=== PATIENT | female | born 1955 | race Caucasian/White ===

== ENCOUNTER 2016-04-18 23:00 | Inpatient (IN) | payer OTHER, MEDICARE ==
--- NOTE | ~2016-04-18 | HP ---
History And Physical [facility] [address] [place]. [address] NAME: DIXIE LILLY : 55 STATUS : ADM IN [facility]#: [id number] AGE: 60 ADM/REG DATE : 04/19/16 MR#: [id number] REPORT SERV DATE: 04/19/16 DICTATED BY: DEIDRE NUGENT DATE: 04/19/16 REPORT STATUS : Draft TRANSCRIBED BY: MODLuis Enrique DATE: 04/19/16 DATE OF ADMISSION: 04/19/2016 POINT OF ENTRY: [facility] Emergency Department. CHIEF COMPLAINT: Shortness of breath and chest pain. HISTORY OF PRESENT ILLNESS: Ms. Lilly is a 60-year-old female with history of severe COPD, on 3 L by nasal cannula, and is reportedly on hospice secondary to her advanced pulmonary disease as well as a history of chronic pain on multiple chronic narcotics and sedating medications, bipolar disease, hypertension, and anxiety, who presents to the emergency department today with multiple complaints including reports of worsening of her chronic shortness of breath as well as severe substernal chest pain with radiation to the back. The patient states she has not been feeling well for the past few days. She has noticed some slight increase in her cough and shortness of breath above her baseline. This evening she developed severe substernal chest pain which radiated to her back. This caused her some distress. She called her hospice agency who reportedly recommended that she come to the emergency department to be seen. Initial evaluation in the emergency department notable for a D-dimer that was less than 0.5. Labs otherwise unremarkable. EKG as well as cardiac enzymes were nonischemic. Chest x-ray was clear. ABG did show some chronic hypercarbic and hypoxic respiratory failure but appeared to be well compensated with a pH of 7.35. She was started on medications for COPD exacerbation and admitted to Hospitalist Service for further evaluation. COMPREHENSIVE REVIEW OF SYSTEMS: Otherwise negative unless listed in history of present illness. PREVIOUS MEDICAL HISTORY: 1. Severe COPD on 3 L nasal cannula. 2. Chronic pain on multiple sedating medications and chronic narcotics. 3. Anxiety. 4. Bipolar disease. 5. Sick sinus syndrome, status post pacemaker insertion. 6. Gastroesophageal reflux disease and peptic ulcer disease. 7. Obstructive sleep apnea, noncompliant with CPAP therapy. 8. Hypertension. 9. Hypothyroidism. 10.Peripheral arterial disease with renal artery stenosis. 11.Huj-brbuebf-oqzmdesgr diabetes mellitus type 2. SURGICAL HISTORY: 1. Pacemaker insertion. 2. Cholecystectomy. 3. Abdominal hysterectomy, bilateral salpingo-oophorectomy. History And Physical [place] [id number] [place]. [address] NAME: DIXIE LILLY : 55 STATUS : ADM IN [facility]#: [id number] AGE: 60 ADM/REG DATE : 04/19/16 MR#: [id number] REPORT SERV DATE: 04/19/16 DICTATED BY: DEIDRE NUGENT DATE: 04/19/16 REPORT STATUS : Draft TRANSCRIBED BY: NOÉ DATE: 04/19/16 4. Back surgery x4. ALLERGIES: NO KNOWN DRUG ALLERGIES. HOME MEDICATIONS: 1. Albuterol two puffs inhalation p.r.n. 2. Abilify 15 mg daily. 3. Aspirin 325 mg daily. 4. Klonopin 2 mg t.i.d. 5. Lasix 40 mg daily. 6. Gabapentin 100 mg t.i.d. 7. Hydrochlorothiazide 25 mg daily. 8. Labetalol 300 mg b.i.d. 9. Levothyroxine 100 mcg daily. 10.Losartan 100 mg daily. 11.Meloxicam 7.5 mg daily. 12.Metformin 500 mg b.i.d. 13.MS Contin 45 mg t.i.d. 14.Nicotine transdermal patch. 15.Percocet 10/325 one tab q.i.d. 16.Protonix 40 mg daily. 17.Potassium chloride 10 mEq daily. 18.Phenergan 25 mg q.4 hours p.r.n. 19.Senokot one tab b.i.d. 20.Zoloft 25 mg daily. 21.Spiriva one cap inhalation daily. 22.Trazodone 150 mg b.i.d. 23.Morphine liquid 20 mg q.i.d. p.r.n. SOCIAL HISTORY: She is a former smoker, quit just 5 days ago. Denies alcohol. Denies illicits. FAMILY MEDICAL HISTORY: Mother with diabetes and coronary artery disease. Father with diabetes and coronary artery disease. Siblings with coronary artery disease. LABS AND IMAGIN. White count is 9.8, hemoglobin is 14.8, hematocrit is 43.6, and platelet count is 175. INR is 0.9. 2. Sodium is 141, potassium 3.3, chloride 98, carbon dioxide 35, BUN 15, creatinine 0.96, glucose is 110, calcium is 8.5, magnesium is 2.0, protein 7.0, albumin 3.2, bilirubin 0.4, ALT is 26, AST 16, alkaline phosphatase is 142. 3. BNP is 9.4. D-dimer is 0.34. Troponin less than 0.02. 4. EKG per my review shows sinus tachycardia with no evidence of any acute ischemia or infarction. 5. Chest x-ray per my review shows poor inspiration, but otherwise no acute cardiopulmonary abnormalities. 6. ABG: PH is 7.35, pCO2 is 65, PO2 is 86, bicarb is 35, saturating 97% on 4 L by nasal History And Physical [address] [address] NAME: DIXIE LILLY : 55 STATUS : ADM IN [facility]#: [id number] AGE: 60 ADM/REG DATE : 04/19/16 MR#: [id number] REPORT SERV DATE: 04/19/16 DICTATED BY: DEIDRE NUGENT DATE: 04/19/16 REPORT STATUS : Draft TRANSCRIBED BY: NOÉ DATE: 04/19/16 cannula. PHYSICAL EXAMINATION: VITAL SIGNS: Temperature is 98.1 degrees Fahrenheit, pulse is 96, respirations 34, saturating 96% on 4 L of nasal cannula, and blood pressure /75. GENERAL: The patient is awake, alert, in no acute distress. Resting comfortably in bed. She is a very anxious appearing female. HEENT: Atraumatic and normocephalic. Moist mucous membranes. Pupils equal, round, and reactive to light and accommodation. Extraocular movements intact. No scleral icterus. NECK: No jugular venous distention. No carotid bruits. CARDIAC: Regular rate and rhythm. No murmurs, rubs, or gallops. Normal S1, S2. She is tender to palpation over the sternal area. LUNGS: On oxygen but in no respiratory distress. She is currently saturating well on 3 L of nasal cannula. Does have prolonged respiratory phase as well as diffuse inspiratory wheezes in all lung anders. ABDOMEN: Soft, nontender, nondistended. Good bowel sounds. No rebound, guarding, or rigidity. EXTREMITIES: Warm, perfused. No cyanosis, clubbing, or edema. SKIN: Warm and dry. PSYCH: Very anxious. NEURO: Alert and oriented x3. Cranial nerves 2 through 12 grossly intact. Speech is normal. Gait not assessed. ASSESSMENT: Ms. Lilly is a 60-year-old female who presents with shortness of breath, cough, and chest pain with radiation to the back. Concern for acute chronic obstructive pulmonary disease exacerbation as well as likely noncardiac chest pain. PROBLEM LIST: 1. Acute COPD exacerbation. 2. Chronic hypercarbic and hypoxic respiratory failure. 3. Chest pain, likely noncardiac. 4. Chronic pain on chronic narcotics. 5. Hypokalemia. PLAN: 1. Acute COPD exacerbation. We will treat with IV antibiotics, IV steroids, as well as frequent bronchodilators. 2. Chronic hypercarbic and hypoxic respiratory failure. She appears to be well compensated this time. She is currently on her home 3 L of nasal cannula. Her pH is slightly low and her pCO2 is slightly elevated. Therefore, I put her on intermittent BiPAP primarily at night. 3. Chest pain. This appears to be noncardiac in nature given my ability to reproduce the pain on palpation of the anterior chest wall. However, given her reports of radiation to the back as well as tachycardia when she first arrived, I will send her off for a stat CTA of the chest and rule out for PE. 4. Chronic pain on chronic narcotics. We will continue the patient's home chronic narcotics. We will limit the amount of IV p.r.n. narcotics that she receives. History And Physical [address] [place]. [address] NAME: DIXIE LILLY : 55 STATUS : ADM IN [facility]#: [id number] AGE: 60 ADM/REG DATE : 04/19/16 MR#: [id number] REPORT SERV DATE: 04/19/16 DICTATED BY: DEIRDE NUGENT DATE: 04/19/16 REPORT STATUS : Draft TRANSCRIBED BY: NOÉ DATE: 04/19/16 5. DVT prophylaxis. Lovenox subcutaneous. CODE STATUS: The patient wishes to be full code. Of note, she again is wishing to revoke hospice while she is here but has plans to go back to [facility] upon discharge. JCB/MODL Deidre Nugent MD / [id number] CC: MD Osmar Yepez M.D.
--- NOTE | ~2016-04-18 | IDS ---
Interim Discharge Summary [facility] [address] [place]. [address] NAME: DIXIE LILLY : 55 STATUS : ADM IN PAT#: [id number] AGE: 60 ADM/REG DATE : 04/19/16 MR#: [id number] REPORT SERV DATE: 04/25/16 DICTATED BY: MAYE PRAKASH DATE: 04/24/16 REPORT STATUS : Draft TRANSCRIBED BY: NOÉ DATE: 04/24/16 ADMISSION DATE: 04/19/2016 DISCHARGE DATE: CURRENT ADMISSION DIAGNOSES: 1. Chronic hypercapnic respiratory failure. 2. Acute chronic obstructive pulmonary disease exacerbation. 3. Obstructive sleep apnea. 4. Small-bowel obstruction. 5. Chronic back pain. 6. Chronic pain syndrome. 7. Chronic opioid dependence. 8. Obstructive sleep apnea on CPAP. 9. Anxiety disorder. 10.DNR status. 11.Hypothyroidism. 12.Noncardiac chest pain. CURRENT CONDITION: Critical. CONSULTANTS INVOLVED IN THIS PATIENT'S CARE: 1. Pulmonology. 2. Psychiatry. 3. General Surgery. 4. Palliative Care. BRIEF HISTORY OF PRESENT ILLNESS: This is a 60-year-old female with history of COPD on 3 L of O2 at baseline who reportedly is in hospice secondary to advanced pulmonary disease who presented to the hospital with concerns of shortness of breath and chest pain. In the ER, the patient was found to have a chest x-ray. In the ER, chest x-ray was otherwise normal. ABG shows a pH of 7.35, pCO2 of 65, PO2 of 86. Physical exam was noted for significant diffuse expiratory wheeze. An assessment of acute COPD exacerbation was made with chronic hypercapnic respiratory failure. The patient was admitted to the Hospitalist Service. The patient had a CTA to rule out pulmonary embolism during this admission. HOSPITAL COURSE: 1. Acute COPD exacerbation. The patient was started on IV methylprednisone with DuoNeb. The patient's shortness of breath initially improved, however, she continues to wheeze persistently despite IV antibiotics treatment, steroid treatments, and bronchodilators. Given her known history of advanced lung disease and chronic hypercapnic respiratory failure, Pulmonology was consulted for further recommendation. Pulmonology recommended to transition patient from IV prednisone to p.o. prednisone and also discontinue p.o. antibiotics as the patient has completed 7 days of levofloxacin. They recommend to continue DuoNeb and also added Pulmicort and Symbicort to the patient's treatment. 2. Chronic hypercapnic respiratory failure. The patient has a BiPAP machine at the bedside. The patient sleeps with BiPAP at night. The patient did not meet criteria Interim Discharge Summary [place] [id number] [place]. [address] NAME: DIXIE LILLY : 55 STATUS : ADM IN [facility]#: [id number] AGE: 60 ADM/REG DATE : 04/19/16 MR#: [id number] REPORT SERV DATE: 04/25/16 DICTATED BY: MAYE PRAKASH DATE: 04/24/16 REPORT STATUS : Draft TRANSCRIBED BY: NOÉ DATE: 04/24/16 for acute hypercapnic respiratory failure as the patient's pH has remained persistently normal. 3. Small bowel obstruction. The patient developed nausea and vomiting on 04/24/2016. X- ray was initially negative. CT scan of the abdomen was done that was consistent with small-bowel obstruction. NG tube was placed. General Surgery was consulted. Per General Surgery, the patient is not a surgical candidate. We will continue conservative management. 4. Code status. The patient came in to the hospital with history of hospice care. However, code status was initially reversed in the ER for patient to be admitted. Palliative Care was consulted to address code status as well as to assist with chronic pain management. The patient was deemed to be DNR in the hospital. Adjustments were made to patient's narcotics medication per Palliative Care recommendation. 5. Bipolar disorder. The patient takes a lot of bipolar medications. However, given that Psychiatry was consulted to assist in management of antipsychotic medication and determine competency, patient is competent for Psychiatry and the patient was advised to continue current antipsychotic medication. 6. Known cardiac chest pain. The patient continued to report chronic chest pain. Stress test was done that was essentially negative. Echo was done that shows preserved EF. No evidence. The patient's chronic chest pain is definitely not cardiac and may have some psychiatric component to it. ONGOING ACTIVE ISSUES: 1. Small bowel obstruction. 2. Chronic opioid use. 3. Acute chronic obstructive pulmonary disease exacerbation. CODE STATUS: DNR. AMYO/MODL Maye Prakash MD / [id number] CC: Maye Prakash MD
--- NOTE | ~2016-04-18 | PUL ---
[address] [address] NAME: DIXIE LILLY : 55 STATUS : DIS IN PAT#: [id number] AGE: 60 ADM/REG DATE : 04/19/16 MR#: [id number] REPORT SERV DATE: 05/02/16 DICTATED BY: RANDA GREEN DATE: 05/01/16 REPORT STATUS : Draft TRANSCRIBED BY: MODL DATE: 05/01/16 PULMONARY FUNCTION TEST TEST: Overnight pulse oximetry done on 32% FiO2. Total recording time 5 hours 58 minutes, mean pulse is 90, mean oxygen saturation 95.4%. Time with an oxygen saturation less than 88% is 0. INTERPRETATION: On this patient, who is on 32% FiO2, no significant desaturations were noted or hypoxia. It seems that this patient is adequately titrated. HFQ/NOÉ Randa Green MD / [id number] CC: Sam Ibanez MD
--- NOTE | ~2016-04-18 | DS ---
Discharge Summary [facility] [address] [place]. [address] NAME: DIXIE LILLY : 55 STATUS : DIS IN PAT#: [id number] AGE: 60 ADM/REG DATE : 04/19/16 MR#: [id number] REPORT SERV DATE: 04/27/16 DICTATED BY: GREGORY AMANDA DATE: 04/26/16 REPORT STATUS : Draft TRANSCRIBED BY: MODL DATE: 04/26/16 ADMISSION DATE: 04/19/2016 DISCHARGE DATE: 04/26/2016 HISTORY OF PRESENT ILLNESS: The patient a 60-year-old female with a history of severe COPD and ROCHELLE, on BiPAP, who presented to the emergency room with a complaint of shortness of breath and chest pain. For further details, please refer to H and P dictated by Dr. Barajas on 04/19/2016. HOSPITAL COURSE: Please refer to interim discharge summary dictated by Dr. Winchester on 04/25/2016. I assumed care of this patient 04/25/2016. This dictation is an addition to interim discharge summary. The patient was evaluated by Palliative Care given Surgery's evaluation of no acute intervention in the setting of small bowel obstruction secondary to severe COPD. Given this, the patient's code status was changed to DNI/DNR. The patient has been followed by Palliative Care. Per discussions with Palliative Care, the patient would like to be placed back on hospice care. Given completion of workup and no plan for any active intervention, the patient will be discharged home on hospice care. Plan has been discussed with the patient, who voices understanding. All other information in the interim discharge summary remains the same. Greater than 30 minutes was spent coordinating care, dictation of note, discussion of the patient with Palliative Care and Case Management. MERT/NOÉ Gregory Amanda MD / [id number] CC: Gregory Amanda MD
--- NOTE | ~2016-04-18 | CN ---
Consultation Report [facility] [address] [place]. [address] NAME: DIXIE LILLY : 55 STATUS : ADM IN PAT#: [id number] AGE: 60 ADM/REG DATE : 04/19/16 MR#: [id number] REPORT SERV DATE: 04/24/16 DICTATED BY: EFREM HOWE DATE: 04/24/16 REPORT STATUS : Draft TRANSCRIBED BY: MODL DATE: 04/24/16 PSYCHIATRIC CONSULTATION DATE OF CONSULTATION: 04/24/2016 I reviewed the patient's current and old medical records. I discussed the patient's status with Dr. Winchester, her hospitalist. HISTORY OF PRESENT ILLNESS: She was admitted with shortness of breath and chest pain. PAST PSYCHIATRIC HISTORY: Over the past two years, she has had a number of admissions to this hospital with noncardiac chest pain and exacerbations of COPD. Prior to this admission, she apparently was under hospice care, but since her admission, she was given contradictory instructions concerning DNR and code status in general. HOME MEDICATION LIST: Included Abilify 15 mg daily, Klonopin 2 mg t.i.d., Neurontin 100 mg t.i.d., MS Contin 45 mg t.i.d., morphine liquid 20 mg q.i.d. p.r.n., Zoloft 25 mg daily, trazodone 150 mg b.i.d. and a nicotine patch. She was able to tell me that she used to get psychiatric care from Dr. Kennedy at [facility] in [place]. She was too drowsy to give any further details concerning her history of psychiatric illness and treatment. SOCIAL HISTORY: She apparently lives in [place], [place]. She reportedly has two children. I called the telephone number which was on the face sheet for her daughter Yola, but I got a confusing reply. The respondent said she had a different name but that indeed her mother was in the hospital but it was at [facility]. MENTAL STATUS: The patient was drowsy, and she frequently lapsed into sleep as I was trying to get her past history. Her voice was slow and slurred. She had difficulty completing sentences. DIAGNOSES: 1. Toxicity from polypharmacy. 2. Probable bipolar disorder, NOS. RECOMMENDATION: At this time, the patient does not have capacity to give a history or to make treatment decisions because of over-sedation. She probably will regain capacity if we are able to reduce her sedating medications. At the hospitalist's discretion, we might consider stopping trazodone and reducing the Klonopin. However, if she is going to be followed by hospice, this medication regimen might be acceptable to hospice standards and goals. Consultation Report [place] [id number] [place]. [address] NAME: DIXIE LILLY : 55 STATUS : ADM IN PAT#: [id number] AGE: 60 ADM/REG DATE : 04/19/16 MR#: [id number] REPORT SERV DATE: 04/24/16 DICTATED BY: EFREM HOWE DATE: 04/24/16 REPORT STATUS : Draft TRANSCRIBED BY: NOÉ DATE: 04/24/16 MICHEL/NOÉ Efrem Howe M.D. / [id number] CC: Maye Winchester MD
--- NOTE | ~2016-04-18 | CN ---
Consultation Report [facility] [address] [place]. [address] NAME: NOVA LILLY : 55 STATUS : ADM IN [facility]#: [id number] AGE: 60 ADM/REG DATE : 04/19/16 MR#: [id number] REPORT SERV DATE: 04/24/16 DICTATED BY: MAISHA BRIGGS DATE: 04/23/16 REPORT STATUS : Draft TRANSCRIBED BY: MODLuis Enrique DATE: 04/23/16 DATE OF CONSULTATION: Dear Dr. Winchester: Thank you for requesting my opinion regarding evaluation and management of Ms Nova Lilly's severe COPD and chronic hypoxic respiratory failure. Ms Lilly is a pleasant, but unfortunate 60-year-old female with a significant past medical history of severe COPD and active tobacco abuse requiring 3 L nasal cannula at home, who was actually on hospice prior to this admission who presented with worsening shortness of breath and severe substernal chest pain with radiation to her back. Her cardiac workup demonstrated a normal echocardiogram, no ischemia, and normal LV function and negative cardiac enzymes. The patient's shortness of breath was treated with Levaquin, Brovana, Pulmicort, DuoNebs, nicotine patch, and Solu-Medrol. The patient also has a pending ABG and is now complaining of new onset abdominal pain and discomfort. She has a history of chronic pain issues, requiring chronic narcotics. REVIEW OF SYSTEMS: A detailed 14-point review of systems was completed. Pertinent positives and negatives are listed above. PAST MEDICAL HISTORY: 1. COPD, on 3 L nasal cannula. 2. Chronic pain on multiple sedating medications and chronic narcotics. 3. Severe anxiety. 4. Bipolar disease. 5. Sick sinus syndrome, status post pacemaker insertion. 6. GERD and peptic ulcer disease. 7. Obstructive sleep apnea, noncompliant with CPAP therapy. 8. Hypertension. 9. Hypothyroidism. 10.Peripheral arterial disease with renal artery stenosis. 11.Ruc-uwbmqob-yhwmlxrpf diabetes type 2. PAST SURGICAL HISTORY: 1. Pacemaker insertion. 2. Cholecystectomy. 3. Abdominal hysterectomy and bilateral salpingo-oophorectomy. 4. Back surgery x4. ALLERGIES: NO KNOWN DRUG ALLERGIES. Consultation Report [place] [id number] [facility] [place] [place]. [address] NAME: NOVA LILLY : 55 STATUS : ADM IN PAT#: [id number] AGE: 60 ADM/REG DATE : 04/19/16 MR#: [id number] REPORT SERV DATE: 04/24/16 DICTATED BY: MAISHA BRIGGS DATE: 04/23/16 REPORT STATUS : Draft TRANSCRIBED BY: NOÉ DATE: 04/23/16 HOME MEDICATIONS: Reviewed and located in the paper chart. SOCIAL HISTORY: The patient continued to smoke up until five days ago. She denies any significant alcohol or illicit drug abuse. FAMILY HISTORY: Coronary artery disease. PHYSICAL EXAMINATION: VITAL SIGNS: Afebrile. T-current 97.9, pulse of 74, respiratory rate of 18, 3 L nasal cannula 96%, blood pressure 136/70. GENERAL: In no acute distress. Able to communicate in full paragraphs at a time. HEENT: Normocephalic, atraumatic. Pupils are equal, round, and reactive to light and accommodation. Posterior oropharynx is clear. NECK: No JVD. No LAD. Trachea midline. CARDIOVASCULAR: Regular rate and rhythm. S1, S2 present. LUNGS: Coarse bilateral breath sounds, end-expiratory wheezes noted bilaterally. Abdomen slightly tender, but not distended and no rebound or guarding noted. EXTREMITIES: No clubbing, cyanosis, or edema. SKIN: No new rashes, lesions, or ulcers. PSYCHIATRIC: Alert and oriented x3. Appropriate mood and affect. Anxious. NEUROLOGIC: 5/5 strength in upper and lower extremities. Cranial nerves II through XII intact. Gait not tested. DTRs not performed. LABORATORY: White count of 15, hemoglobin of 15, platelet count of 184. Negative procalcitonin on 04/21/2016. Creatinine of 0.91, improved. IMAGIN. CTA of the chest on 04/19/2016 demonstrates no evidence of pulmonary embolism. There is an aberrant right subclavian artery. 2. Multifocal atelectatic changes in the lower lobes of both lungs. There is a wedge- shaped band of opacity in the superior segment of the right lower lobe which may represent atelectasis or an infectious inflammatory infiltrate. 3. Stable low dense right adrenal nodule, measuring 28 x 30 mm, was compatible with an adenoma. Low-density nodule with thickening in the lateral limb of the left adrenal gland, it is likely some underlying adenomatous change. 4. Status post pacemaker placement and cholecystectomy. This CT scan was personally reviewed by me, and I agree with the above interpretation. Findings on the echocardiogram were reviewed. KUB has been ordered. ASSESSMENT AND PLAN: Ms Nova Lilly is an unfortunate 60-year-old female with a significant past medical history of severe chronic obstructive pulmonary disease requiring 3 Consultation Report [address] [address] NAME: NOVA LILLY : 55 STATUS : ADM IN PAT#: [id number] AGE: 60 ADM/REG DATE : 04/19/16 MR#: [id number] REPORT SERV DATE: 04/24/16 DICTATED BY: MAISHA BRIGGS DATE: 04/23/16 REPORT STATUS : Draft TRANSCRIBED BY: NOÉ DATE: 04/23/16 L nasal cannula and continued tobacco abuse and chronic pain issues who presents to [facility] with substernal chest pain. It is likely noncardiac in origin. The patient's shortness of breath is likely multifactorial due to the following. 1. Acute exacerbation of chronic obstructive pulmonary disease with baseline home O2 requirements of 3 L nasal cannula. 2. Obstructive sleep apnea with intermittent compliance with CPAP therapy. 3. Chronic pain with multiple sedating agents and chronic narcotics. 4. Anxiety. 5. Bipolar disease. 6. New onset abdominal discomfort. I have reviewed the current treatment plan which includes Brovana, Pulmicort, DuoNebs, nicotine patch, and Levaquin. I agree with the current plan and will make only change Solu- Medrol to prednisone therapy. Followup. Defer abdominal pain workup to the hospitalist. Thank you for allowing me to participate in Ms Lilly's care. Sincerely, LESLIE/NOÉ Maisha Briggs M.D. / [id number] CC: Maye Winchester MD
[~2016-04-18 23:00] MED LIST: ABILIFY10; ABILIFY10 PO; ABILIFY15 PO; ABILIFY30 MG PO; ACCUNE1 INH; ALER-CAP25 MG PO; ANITBIOTIC; ASA5GR PO; ASABAYER PO; ATROVENTUD INH; CARASPUDL PO; COZ25 PO; CRESTOR10 PO; EFFEXXR37 PO; FLEX PO; GLUCPH PO; HYDROCHLOROT25 MG PO; IBU800 PO; INHALER; IVVIBRA; KLONO1 PO; KLONO2 PO; KLONO5 PO; KLOR-CON 1010 MEQ PO; KLOR-CON M2020 MEQ PO; L40 PO; LAMICTAL10 PO; LAMICTAL150 MG PO; LEVAQUIN750 MG PO; LEVOTHYROXIN100 MCG PO; LEVOTHYROXIN75 MCG PO; LEXAPRO20 PO; LINZESS 145 M145 MCG PO; LORTAB10 PO; MIRALAXPKT PO; MSCONTIN PO; NEUR300 PO; NEUR400 PO; NEUR600 PO; NICODERM C21 MG/241 TOP; P1; P20 PO; PERCOCET1 TA4 PO; PR25 PO; PRAVAC PO; PRILO PO; PROAIR HFA INH; QVAR80 MCG IN; SEROQUEL300 MG PO; SPIRIVA INH; SYN075 PO; SYN1 PO; T PO; TOPAMAX100 PO; TRAZODONE150 MG PO; TRAZODONE300 MG PO; TYLENOL ARTH650 MG PO; ULTRAM50 PO; VIB100 PO; XOPEN0.5ML INH; ZANAFLEX2 MG PO; ZANTAC150 MG PO; ZOFRAN8 PO; [UNRECOGNIZED DRUG - REMARK]
[2016-04-18 23:28] LABS: CARBOXYHEMOGLOBIN 6.6 % (0-3); DEVICE NC; HEMOBLOGIN CONTENT 14.7 G/DL (12-16); INSTRUMENT SERIAL # 8087; METHEMOGLOBIN 0.1 % (0-3); O2 CONTENT 18.7 VOL% (18-24); PCO2 (CO2 TENSION) 65 MMHG (35-45); PO2 (O2 TENSION) 86 MMHG (79-93); SAMPLE Arterial; pH 7.35 (7.37-7.43)
[2016-04-18 23:41] LABS: BASOPHILS 0.3 %; BASOPHILS ABSOLUTE 0.03 10/3/uL (0.0-0.16); EOSINOPHILS 1.6 %; EOSINOPHILS ABSOLUTE 0.16 10/3/uL (0.0-0.53); ER CBC TAT 0 Hrs 06 MinsNP; HEMATOCRIT 43.6 % (36.0-48.0); HEMOGLOBIN 14.8 g/dL (12.0-16.0); IMMATURE GRANULOCYTES 0.3 %; IMMATURE GRANULOCYTES ABSOLUTE 0.03 10/3/uL (0.0-0.11); LYMPHOCYTES 28.2 %; LYMPHOCYTES ABSOLUTE 2.76 10/3/uL (0.67-4.30); MANUAL DIFF NO %; MEAN CORPUS HGB CONC 33.9 g/dL (32.0-36.0); MEAN CORPUSCULAR HEMOGLOB 29.6 pg (26.0-34.0); MEAN CORPUSCULAR VOLUME 87.2 fL (80-100); MEAN PLATELET VOLUME 10.8 fL (9.2-13.0); MONOCYTES 6.8 %; MONOCYTES ABSOLUTE 0.67 10/3/uL (0.21-1.20); NEUTROPHILS 62.8 %; NEUTROPHILS ABSOLUTE 6.14 10/3/uL (2.02-8.40); PLATELET COUNT 175 10/3/uL (150-400); RBC DISTRIBUTION WIDTH 13.1 % (12.0-16.0); WHITE BLOOD CELLS 9.8 10/3/uL (4.5-10.5)
[2016-04-18 23:47] LABS: INTERNATIONAL NORMAL RATI 0.9 UNITS (-); PARTIAL THROMBO TIME 30.9 SEC (22.5-37.2); PROTIME (NOT ORD) 12.3 SEC (12.0-14.5)
[2016-04-18 23:49] LABS: D-DIMER QUANTITATIVE 0.34 ug/mLFEU (< 0.50)
[2016-04-18 23:57] LABS: ALBUMIN 3.2 G/DL (3.5-5.0); CALCIUM, SERUM 8.5 MG/DL (8.5-10.4); CHEST PAIN PROFILE TAT 0 Hrs 22 Mins; CHLORIDE, SERUM 98 MMOL/L (96-112); CO2 (CARBON DIOXIDE) 35 MMOL/L (24-34); CREATININE 0.96 MG/DL (0.55-1.02); DIRECT BILIRUBIN 0.1 MG/DL (0.0-0.4); GFR AFRICAN AMERICAN 75 ML/MIN (>=60); GFR NON AFRICAN AMERICAN 64 ML/MIN (>=60); INDIRECT BILIRUBIN(NOT ORDER) 0.3 MG/DL (0.1-0.9); POTASSIUM, SERUM 3.3 MMOL/L (3.5-5.3); SGOT(AST) 16 U/L (5-40); SGPT(ALT) 26 U/L (5-65); TOTAL BILIRUBIN 0.4 MG/DL (0-1.2); TROPONIN I <0.02 NG/ML (<0.05)
[2016-04-18 23:58] LABS: ALKALINE PHOSPHATASE 142 U/L (45-117); BUN (BLOOD UREA NITROGEN) 15 MG/DL (6-23); GLUCOSE, SERUM 110 MG/DL (60-99); SODIUM, SERUM 141 MMOL/L (135-148)
[2016-04-19] MEDS ORDERED: TRAZODONE150 MG PO (03:03)
[2016-04-19] MEDS ORDERED: ZOLOFT25 MG PO (03:03)
[2016-04-19] MEDS ORDERED: L40 PO (03:03)
[2016-04-19] MEDS ORDERED: COZAAR100 MG PO (03:03)
[2016-04-19] MEDS ORDERED: GLUCPH PO (03:03)
[2016-04-19] MEDS ORDERED: ASA5GR PO (03:03)
[2016-04-19] MEDS ORDERED: NEUR800 PO (03:04)
[2016-04-19] MEDS ORDERED: SYN1 PO (03:04)
[2016-04-19] MEDS ORDERED: ABILIFY15 PO (03:04)
[2016-04-19] MEDS ORDERED: TRANDAT300 PO (03:04)
[2016-04-19] MEDS ORDERED: PROTONIX PO (03:04)
[2016-04-19] MEDS ORDERED: KDUR10 PO (03:05)
[2016-04-19] MEDS ORDERED: HABIT21 TOP (03:05)
[2016-04-19] MEDS ORDERED: SENTAB PO (03:05)
[2016-04-19] MEDS ORDERED: KLONO2 PO (03:06)
[2016-04-19] MEDS ORDERED: MSCONT15 PO (03:07)
[2016-04-19] MEDS ORDERED: SPIRIVA INH (03:08)
[2016-04-19] MEDS ORDERED: PROAIR HFA INH (03:08)
[2016-04-19] MEDS ORDERED: PERCOCET 10/3251 TAB PO (03:08)
[2016-04-19] MEDS ORDERED: PR25 PO (03:08)
[2016-04-19] MEDS ORDERED: MOBIC7.5 PO (03:09)
[2016-04-19] MEDS ORDERED: MORPHINE 20 MG/1 ML PO (03:10)
[2016-04-19] MEDS ORDERED: HYDROCHLOROT25 MG PO (03:12)
[2016-04-19 07:06] LABS: TROPONIN I <0.02 NG/ML (<0.05)
[2016-04-19 07:11] LABS: CK-MB < 0.5 NG/ML; CPK 67 U/L (0-200)
[2016-04-19 16:17] LABS: CPK 77 U/L (0-200); TROPONIN I <0.02 NG/ML (<0.05)
[2016-04-19 16:32] LABS: CK-MB 0.7 NG/ML
[2016-04-20 07:57] LABS: BASOPHILS 0 %; EOSINOPHILS 0 %; HEMATOCRIT 43.2 % (36.0-48.0); HEMOGLOBIN 14.7 g/dL (12.0-16.0); IMMATURE GRANULOCYTES 0.4 %; IMMATURE GRANULOCYTES ABSOLUTE 0.07 10/3/uL (0.0-0.11); LYMPHOCYTES 5.1 %; LYMPHOCYTES ABSOLUTE 0.98 10/3/uL (0.67-4.30); MANUAL DIFF NO %; MEAN CORPUSCULAR HEMOGLOB 29.6 pg (26.0-34.0); MEAN CORPUSCULAR VOLUME 87.1 fL (80-100); MEAN PLATELET VOLUME 11.1 fL (9.2-13.0); MONOCYTES 2.4 %; MONOCYTES ABSOLUTE 0.45 10/3/uL (0.21-1.20); NEUTROPHILS 92.1 %; NEUTROPHILS ABSOLUTE 17.59 10/3/uL (2.02-8.40); PLATELET COUNT 192 10/3/uL (150-400); RBC DISTRIBUTION WIDTH 13.2 % (12.0-16.0); RED CELL COUNT 4.96 10/6/uL (4.0-5.6); WHITE BLOOD CELLS 19.1 10/3/uL (4.5-10.5)
[2016-04-20 08:40] LABS: ALBUMIN 3.3 G/DL (3.5-5.0); BUN (BLOOD UREA NITROGEN) 18 MG/DL (6-23); CALCIUM, SERUM 8.8 MG/DL (8.5-10.4); CHLORIDE, SERUM 91 MMOL/L (96-112); CO2 (CARBON DIOXIDE) 34 MMOL/L (24-34); CREATININE 1.04 MG/DL (0.55-1.02); GFR AFRICAN AMERICAN 68 ML/MIN (>=60); GFR NON AFRICAN AMERICAN 58 ML/MIN (>=60); GLUCOSE, SERUM 186 MG/DL (60-99); PHOSPHORUS, SERUM 3.5 MG/DL (2.5-4.5); POTASSIUM, SERUM 3.9 MMOL/L (3.5-5.3); SODIUM, SERUM 133 MMOL/L (135-148)
[2016-04-21 05:34] LABS: BASOPHILS 0.1 %; BASOPHILS ABSOLUTE 0.01 10/3/uL (0.0-0.16); EOSINOPHILS 0 %; HEMATOCRIT 42.4 % (36.0-48.0); HEMOGLOBIN 14.3 g/dL (12.0-16.0); IMMATURE GRANULOCYTES 0.6 %; IMMATURE GRANULOCYTES ABSOLUTE 0.09 10/3/uL (0.0-0.11); LYMPHOCYTES 9.4 %; LYMPHOCYTES ABSOLUTE 1.47 10/3/uL (0.67-4.30); MEAN CORPUS HGB CONC 33.7 g/dL (32.0-36.0); MEAN CORPUSCULAR HEMOGLOB 29.5 pg (26.0-34.0); MEAN CORPUSCULAR VOLUME 87.6 fL (80-100); MEAN PLATELET VOLUME 10.6 fL (9.2-13.0); MONOCYTES 5.2 %; MONOCYTES ABSOLUTE 0.81 10/3/uL (0.21-1.20); NEUTROPHILS 84.7 %; NEUTROPHILS ABSOLUTE 13.21 10/3/uL (2.02-8.40); PLATELET COUNT 184 10/3/uL (150-400); RBC DISTRIBUTION WIDTH 13.4 % (12.0-16.0); RED CELL COUNT 4.84 10/6/uL (4.0-5.6); WHITE BLOOD CELLS 15.6 10/3/uL (4.5-10.5)
[2016-04-21 05:36] LABS: MANUAL DIFF NO %
[2016-04-21 05:46] LABS: CALCIUM, SERUM 8.4 MG/DL (8.5-10.4); CHLORIDE, SERUM 88 MMOL/L (96-112); CO2 (CARBON DIOXIDE) 34 MMOL/L (24-34); CREATININE 1.09 MG/DL (0.55-1.02); GFR AFRICAN AMERICAN 64 ML/MIN (>=60); GFR NON AFRICAN AMERICAN 55 ML/MIN (>=60); PHOSPHORUS, SERUM 4.1 MG/DL (2.5-4.5); POTASSIUM, SERUM 4.1 MMOL/L (3.5-5.3); SODIUM, SERUM 133 MMOL/L (135-148)
[2016-04-21 05:49] LABS: BUN (BLOOD UREA NITROGEN) 27 MG/DL (6-23); GLUCOSE, SERUM 147 MG/DL (60-99)
[2016-04-21 06:30] LABS: PROCALCITONIN <0.05 ng/mL (<0.5)
[2016-04-22 07:12] LABS: BASOPHILS 0.1 %; BASOPHILS ABSOLUTE 0.01 10/3/uL (0.0-0.16); EOSINOPHILS 0 %; HEMOGLOBIN 14.9 g/dL (12.0-16.0); IMMATURE GRANULOCYTES 0.7 %; IMMATURE GRANULOCYTES ABSOLUTE 0.09 10/3/uL (0.0-0.11); LYMPHOCYTES 8.9 %; LYMPHOCYTES ABSOLUTE 1.14 10/3/uL (0.67-4.30); MEAN CORPUS HGB CONC 33.9 g/dL (32.0-36.0); MEAN CORPUSCULAR HEMOGLOB 29.2 pg (26.0-34.0); MEAN CORPUSCULAR VOLUME 86.3 fL (80-100); MEAN PLATELET VOLUME 10.8 fL (9.2-13.0); MONOCYTES 3.4 %; MONOCYTES ABSOLUTE 0.44 10/3/uL (0.21-1.20); NEUTROPHILS 86.9 %; NEUTROPHILS ABSOLUTE 11.09 10/3/uL (2.02-8.40); PLATELET COUNT 176 10/3/uL (150-400); RBC DISTRIBUTION WIDTH 12.9 % (12.0-16.0); WHITE BLOOD CELLS 12.8 10/3/uL (4.5-10.5)
[2016-04-22 07:18] LABS: MANUAL DIFF NO %
[2016-04-22 07:22] LABS: ALBUMIN 2.9 G/DL (3.5-5.0); BUN (BLOOD UREA NITROGEN) 24 MG/DL (6-23); CALCIUM, SERUM 8.9 MG/DL (8.5-10.4); CHLORIDE, SERUM 90 MMOL/L (96-112); CO2 (CARBON DIOXIDE) 36 MMOL/L (24-34); CREATININE 0.91 MG/DL (0.55-1.02); GFR AFRICAN AMERICAN 79 ML/MIN (>=60); GFR NON AFRICAN AMERICAN 69 ML/MIN (>=60); GLUCOSE, SERUM 163 MG/DL (60-99); PHOSPHORUS, SERUM 3.2 MG/DL (2.5-4.5); POTASSIUM, SERUM 3.9 MMOL/L (3.5-5.3); SODIUM, SERUM 136 MMOL/L (135-148)
[2016-04-23 17:18] LABS: BASOPHILS 0.1 %; BASOPHILS ABSOLUTE 0.01 10/3/uL (0.0-0.16); EOSINOPHILS 0 %; HEMATOCRIT 45.8 % (36.0-48.0); HEMOGLOBIN 15.7 g/dL (12.0-16.0); IMMATURE GRANULOCYTES 0.9 %; IMMATURE GRANULOCYTES ABSOLUTE 0.13 10/3/uL (0.0-0.11); LYMPHOCYTES 5.8 %; LYMPHOCYTES ABSOLUTE 0.88 10/3/uL (0.67-4.30); MEAN CORPUS HGB CONC 34.3 g/dL (32.0-36.0); MEAN CORPUSCULAR HEMOGLOB 29.4 pg (26.0-34.0); MEAN CORPUSCULAR VOLUME 85.8 fL (80-100); MONOCYTES 5.6 %; MONOCYTES ABSOLUTE 0.85 10/3/uL (0.21-1.20); NEUTROPHILS 87.6 %; NEUTROPHILS ABSOLUTE 13.24 10/3/uL (2.02-8.40); PLATELET COUNT 184 10/3/uL (150-400); RED CELL COUNT 5.34 10/6/uL (4.0-5.6); WHITE BLOOD CELLS 15.1 10/3/uL (4.5-10.5)
[2016-04-23 17:23] LABS: MANUAL DIFF NO %
[2016-04-24 06:19] LABS: BASOPHILS 0.2 %; BASOPHILS ABSOLUTE 0.03 10/3/uL (0.0-0.16); EOSINOPHILS 0.4 %; EOSINOPHILS ABSOLUTE 0.06 10/3/uL (0.0-0.53); HEMATOCRIT 49.5 % (36.0-48.0); HEMOGLOBIN 16.8 g/dL (12.0-16.0); IMMATURE GRANULOCYTES ABSOLUTE 0.17 10/3/uL (0.0-0.11); LYMPHOCYTES 9.8 %; LYMPHOCYTES ABSOLUTE 1.65 10/3/uL (0.67-4.30); MEAN CORPUS HGB CONC 33.9 g/dL (32.0-36.0); MEAN CORPUSCULAR HEMOGLOB 29.4 pg (26.0-34.0); MEAN CORPUSCULAR VOLUME 86.7 fL (80-100); MEAN PLATELET VOLUME 11.2 fL (9.2-13.0); MONOCYTES 7.1 %; NEUTROPHILS 81.5 %; NEUTROPHILS ABSOLUTE 13.78 10/3/uL (2.02-8.40); PLATELET COUNT 199 10/3/uL (150-400); RBC DISTRIBUTION WIDTH 13.5 % (12.0-16.0); RED CELL COUNT 5.71 10/6/uL (4.0-5.6); WHITE BLOOD CELLS 16.9 10/3/uL (4.5-10.5)
[2016-04-24 06:23] LABS: CHLORIDE, SERUM 81 MMOL/L (96-112); CO2 (CARBON DIOXIDE) 38 MMOL/L (24-34); CREATININE 1.35 MG/DL (0.55-1.02); GFR AFRICAN AMERICAN 49 ML/MIN (>=60); GFR NON AFRICAN AMERICAN 43 ML/MIN (>=60); GLUCOSE, SERUM 163 MG/DL (60-99)
[2016-04-24 06:29] LABS: MANUAL DIFF NO %
[2016-04-24 06:33] LABS: BUN (BLOOD UREA NITROGEN) 41 MG/DL (6-23); CALCIUM, SERUM 9.9 MG/DL (8.5-10.4); PHOSPHORUS, SERUM 4.7 MG/DL (2.5-4.5); SODIUM, SERUM 129 MMOL/L (135-148)
[2016-04-24 13:32] LABS: FREE T4 1.01 NG/DL (0.76-1.46)
[2016-04-24 17:10] LABS: ALLENS TEST Pos; BE (BASE EXCESS) 13.9 MEQ/L (0 +/- 2.5); CARBOXYHEMOGLOBIN 0.6 % (0-3); DEVICE NC; HCO3 (ACTUAL BICARBONATE) 42.4 MEQ/L (23-27); HEMOBLOGIN CONTENT 17.4 G/DL (12-16); INSTRUMENT SERIAL # 8083; METHEMOGLOBIN 0.2 % (0-3); PCO2 (CO2 TENSION) 67 MMHG (35-45); PO2 (O2 TENSION) 76 MMHG (79-93); SAMPLE Arterial; pH 7.42 (7.37-7.43)
[2016-04-25 05:52] LABS: HEMATOCRIT 47.6 % (36.0-48.0); HEMOGLOBIN 16.3 g/dL (12.0-16.0); MEAN CORPUS HGB CONC 34.2 g/dL (32.0-36.0); MEAN CORPUSCULAR HEMOGLOB 29.7 pg (26.0-34.0); MEAN CORPUSCULAR VOLUME 86.9 fL (80-100); MEAN PLATELET VOLUME 10.7 fL (9.2-13.0); PLATELET COUNT 177 10/3/uL (150-400); RBC DISTRIBUTION WIDTH 13.5 % (12.0-16.0); RED CELL COUNT 5.48 10/6/uL (4.0-5.6); WHITE BLOOD CELLS 13.4 10/3/uL (4.5-10.5)
[2016-04-25 05:53] LABS: MANUAL DIFF YES %
[2016-04-25 06:09] LABS: BAND NEUTROPHILS 17 %; IMMATURE GRANS ABSOLUTE (CALC) 0.27 10/3/uL (0.0-0.11); LYMPHOCYTES 13 %; LYMPHOCYTES ABSOLUTE (CALC) 1.74 10/3/uL (0.67-4.30); METAMYELOCYTES 2 %; MONOCYTES 7 %; MONOCYTES ABSOLUTE (CALC) 0.94 10/3/uL (0.21-1.20); NEUTROPHILS ABSOLUTE (CALC) 10.45 10/3/uL (2.02-8.40); PLATELET ESTIMATE ADQ (ADEQUATE); RBC MORPHOLOGY NORM (NORMAL); SEGMENTED NEUTROPHIL (0) 61 %; TOTAL NUCLEATED CELLS 100
[2016-04-25 06:12] LABS: ALBUMIN 2.8 G/DL (3.5-5.0); BUN (BLOOD UREA NITROGEN) 44 MG/DL (6-23); CALCIUM, SERUM 9.1 MG/DL (8.5-10.4); CHLORIDE, SERUM 82 MMOL/L (96-112); CREATININE 1.71 MG/DL (0.55-1.02); GFR AFRICAN AMERICAN 37 ML/MIN (>=60); GFR NON AFRICAN AMERICAN 32 ML/MIN (>=60); GLUCOSE, SERUM 137 MG/DL (60-99); SODIUM, SERUM 131 MMOL/L (135-148)
[2016-04-25 06:16] LABS: CO2 (CARBON DIOXIDE) 42 MMOL/L (24-34); PHOSPHORUS, SERUM 3.5 MG/DL (2.5-4.5); POTASSIUM, SERUM 3.2 MMOL/L (3.5-5.3)
[2016-04-26 07:15] LABS: MEAN CORPUS HGB CONC 33.7 g/dL (32.0-36.0); MEAN CORPUSCULAR HEMOGLOB 29.4 pg (26.0-34.0); MEAN PLATELET VOLUME 10.5 fL (9.2-13.0); PLATELET COUNT 139 10/3/uL (150-400); RBC DISTRIBUTION WIDTH 13.5 % (12.0-16.0); RED CELL COUNT 4.77 10/6/uL (4.0-5.6); WHITE BLOOD CELLS 8.9 10/3/uL (4.5-10.5)
[2016-04-26 07:17] LABS: HEMATOCRIT 41.5 % (36.0-48.0); MANUAL DIFF YES %
[2016-04-26 07:37] LABS: BUN (BLOOD UREA NITROGEN) 27 MG/DL (6-23); CALCIUM, SERUM 8.2 MG/DL (8.5-10.4); CHLORIDE, SERUM 95 MMOL/L (96-112); CO2 (CARBON DIOXIDE) 35 MMOL/L (24-34); CREATININE 0.93 MG/DL (0.55-1.02); GFR AFRICAN AMERICAN 77 ML/MIN (>=60); GFR NON AFRICAN AMERICAN 67 ML/MIN (>=60); GLUCOSE, SERUM 119 MG/DL (60-99); PHOSPHORUS, SERUM 1.7 MG/DL (2.5-4.5); POTASSIUM, SERUM 3.3 MMOL/L (3.5-5.3); SODIUM, SERUM 135 MMOL/L (135-148)
[2016-04-26 07:44] LABS: BAND NEUTROPHILS 21 %; IMMATURE GRANS ABSOLUTE (CALC) 0.36 10/3/uL (0.0-0.11); LYMPHOCYTES 15 %; LYMPHOCYTES ABSOLUTE (CALC) 1.34 10/3/uL (0.67-4.30); METAMYELOCYTES 3 %; MONOCYTES 6 %; MONOCYTES ABSOLUTE (CALC) 0.53 10/3/uL (0.21-1.20); MYELOCYTES 1 %; NEUTROPHILS ABSOLUTE (CALC) 6.68 10/3/uL (2.02-8.40); PLATELET ESTIMATE SLT DEC (ADEQUATE); RBC MORPHOLOGY NORM (NORMAL); SEGMENTED NEUTROPHIL (0) 54 %; TOTAL NUCLEATED CELLS 100
[2016-04-26] MEDS ORDERED: MORPHINE ER PO (13:22)
== END 2016-04-26 15:52 | disposition hospice, home (50) | DRG 191 ==
LOC: ER 23:00 → 2SO 04-19 03:52
PROVIDERS: Hospitalist; Internal Medicine; Physician Assistant Medical; Specialist
PROC: 5A09457 Assistance with Respiratory Ventilation, 24-96 Consecutive Hours, Continuous Positive Airway Pressure (ICD-10-PCS; principal; 2016-04-19)
DX: J44.1 Chronic obstructive pulmonary disease with (acute) exacerbation (principal); J96.11 Chronic respiratory failure with hypoxia; J96.12 Chronic respiratory failure with hypercapnia; K56.60 Unspecified intestinal obstruction; F31.9 Bipolar disorder, unspecified; I10 Essential (primary) hypertension; F41.9 Anxiety disorder, unspecified; K21.9 Gastro-esophageal reflux disease without esophagitis; Z51.5 Encounter for palliative care; G47.33 Obstructive sleep apnea (adult) (pediatric); E03.9 Hypothyroidism, unspecified; I73.9 Peripheral vascular disease, unspecified; G89.4 Chronic pain syndrome; D35.01 Benign neoplasm of right adrenal gland; I70.1 Atherosclerosis of renal artery; E11.9 Type 2 diabetes mellitus without complications; E87.6 Hypokalemia; Z66 Do not resuscitate; T50.995A Adverse effect of other drugs, medicaments and biological substances, initial encounter; Z95.0 Presence of cardiac pacemaker; Z82.49 Family history of ischemic heart disease and other diseases of the circulatory system; Z83.3 Family history of diabetes mellitus; Z86.73 Personal history of transient ischemic attack (TIA), and cerebral infarction without residual deficits; Z91.14 Patient's other noncompliance with medication regimen; Z87.891 Personal history of nicotine dependence; Z98.890 Other specified postprocedural states
CPT/HCPCS: 36600; 71010; 71275; 73502-RT; 74000; 74176; 78452; 80048; 80069; 80076; 82550; 82553; 82805; 82962; 83735; 83880; 84100; 84132; 84145; 84439; 84443; 84484; 85025; 85379; 85610; 85730; 93005; 93017; 94640; 94660; 94762; 96374; 96375; 99285; A9270-GY; A9502; C8929; J0280; J1956; J2405; J2785; J2930; Q9957; Q9967